=== PATIENT | male | born 1980 | race Caucasian/White ===

== ENCOUNTER 2016-09-14 07:19 | Emergency (ER) | payer OTHER ==
[2016-09-14] MEDS ORDERED: SODIUM CHLORIDE 0.9% 1,000 ML IV STA (08:05)
--- NOTE | 2016-09-14 08:41 | ED ---
Headache HPI - General Chief Complaint: Headache Stated Complaint: Dizziness Time Seen by Provider: 09/14/16 07:42 Mode of arrival: ambulatory Limitations: no limitations - History of Present Illness Initial Comments: 36 years old male. The right-sided earache for 4 days he went to an urgent care and they irrigated his ears. He Has resolved now they noticed his blood pressure was high. This morning he woke up and he was driving to his work and he felt both his arms were quite heavy and left arm felt numb he still has a headache for the last 4 days denies any chest pain or shortness of breath no abdominal pain he was nauseous but no vomiting/medical history is quite unremarkable he is not taking any medications denies any street drugs no alcohol recently he does have a family history of - Related Data Home Medications Medication Instructions Recorded Confirmed Ibuprofen [Motrin] 600 mg PO ONCE PRN 09/14/16 09/14/16 Allergies Allergy/AdvReac Type Severity Reaction Status Date / Time No Known Allergies Allergy Verified 09/14/16 08:28 Review of Systems ROS Statement: Those systems with pertinent positive or pertinent negative responses have been documented in the HPI. ROS Other: All systems not noted in ROS Statement are negative. Past Medical History Past Medical History: No Reported History History of Any Multi-Drug Resistant Organisms: None Reported Past Surgical History: No Surgical Hx Reported Past Psychological History: No Psychological Hx Reported Smoking Status: Never smoker Past Alcohol Use History: Occasional Past Drug Use History: None Reported General Exam - General Exam Comments Initial Comments: General: The patient is awake and alert, in no distress, and does not appear acutely ill. Skin: Skin is warm and dry and no rashes or lesions are noted. Eye: Pupils are equal, round and reactive to light, extra-ocular movements are intact; there is normal conjunctiva bilaterally. Ears, nose, mouth and throat: There are moist mucous membranes and no oral lesions. No sinusitis noticed Neck: The neck is supple, there is no tenderness or JVD. Cardiovascular: There is a regular rate and rhythm. No murmur, rub or gallop is appreciated. Respiratory: To auscultation bilateral, no wheezing no rhonchi no distress respiratory ortega noticed Gastrointestinal: Soft, non-distended, non-tender abdomen without masses or organomegaly noted. There is no rebound or guarding present. Bowel sounds are unremarkable. Back: There is no tenderness to palpation in the midline. There is no obvious deformity. Musculoskeletal: Normal ROM, no tenderness, There is no pedal edema. There is no calf tenderness or swelling. No cords were appreciated. Neurological: CN II-XII intact, Cranial nerves III through XII are intact. There are no obvious motor or sensory deficits. Coordination appears grossly intact. Speech is normal. Psychiatric: Cooperative, appropriate mood & affect, normal judgment. Limitations: no limitations Course Vital Signs 09/14/16 09/14/16 07:28 09:00 Temperature 99.5 F Pulse Rate 85 91 Respiratory 20 18 Rate Blood Pressure 170/96 144/96 O2 Sat by Pulse 100 99 Oximetry EKG is normal sinus rhythm ventricular rate is 80 NC interval is 134 QRS duration duration is 106 QT/QTc is 378/435 review of this EKG does not reveal any ST elevation or restaurants depression Patient's labs were discussed with the patient, CBC, imaging of the chest CT head troponin are negative patient was monitored during his stay in the hospital I didn't have fluctuated from 160 systolic to 145 is advised to see cardiology as outpatient to get a stress test done since she does have a history of hypertension and history of heart disease in his family. He is no stridor noted any blood pressure medication today he was advised to check his blood pressure daily for a few days and then see his family doctor Medical Decision Making - Lab Data Result diagrams: 09/14/16 07:45 09/14/16 07:45 Lab Results 09/14/16 09/14/16 09/14/16 Range/Units 07:45 07:45 07:45 WBC 7.8 (3.8-10.6) k/uL RBC 5.06 (4.30-5.90) m/uL Hgb 15.2 (13.0-17.5) gm/dL Hct 44.8 (39.0-53.0) % MCV 88.7 (80.0-100.0) fL MCH 30.0 (25.0-35.0) pg MCHC 33.9 (31.0-37.0) g/dL RDW 13.0 (11.5-15.5) % Plt Count 220 (150-450) k/uL Neutrophils % 58 % Lymphocytes % 30 % Monocytes % 6 % Eosinophils % 1 % Basophils % 1 % Neutrophils # 4.5 (1.3-7.7) k/uL Lymphocytes # 2.3 (1.0-4.8) k/uL Monocytes # 0.5 (0-1.0) k/uL Eosinophils # 0.1 (0-0.7) k/uL Basophils # 0.0 (0-0.2) k/uL PT 10.4 (9.0-12.0) sec INR 1.0 (<1.1) Sodium 143 (137-145) mmol/L Potassium 3.8 (3.5-5.1) mmol/L Chloride 104 (98-107) mmol/L Carbon Dioxide 25 (22-30) mmol/L Anion Gap 14 mmol/L BUN 16 (9-20) mg/dL Creatinine 0.84 (0.66-1.25) mg/dL Est GFR (MDRD) Af Amer >60 (>60 ml/min/1.73 sqM) Est GFR (MDRD) Non-Af >60 (>60 ml/min/1.73 sqM) Glucose 92 (74-99) mg/dL Calcium 9.4 (8.4-10.2) mg/dL Total Bilirubin 0.7 (0.2-1.3) mg/dL AST 25 (17-59) U/L ALT 21 (21-72) U/L Alkaline Phosphatase 58 (38-126) U/L Troponin I (0.000-0.034) ng/mL Total Protein 8.3 H (6.3-8.2) g/dL Albumin 4.9 (3.5-5.0) g/dL 09/14/16 Range/Units 07:45 WBC (3.8-10.6) k/uL RBC (4.30-5.90) m/uL Hgb (13.0-17.5) gm/dL Hct (39.0-53.0) % MCV (80.0-100.0) fL MCH (25.0-35.0) pg MCHC (31.0-37.0) g/dL RDW (11.5-15.5) % Plt Count (150-450) k/uL Neutrophils % % Lymphocytes % % Monocytes % % Eosinophils % % Basophils % % Neutrophils # (1.3-7.7) k/uL Lymphocytes # (1.0-4.8) k/uL Monocytes # (0-1.0) k/uL Eosinophils # (0-0.7) k/uL Basophils # (0-0.2) k/uL PT (9.0-12.0) sec INR (<1.1) Sodium (137-145) mmol/L Potassium (3.5-5.1) mmol/L Chloride (98-107) mmol/L Carbon Dioxide (22-30) mmol/L Anion Gap mmol/L BUN (9-20) mg/dL Creatinine (0.66-1.25) mg/dL Est GFR (MDRD) Af Amer (>60 ml/min/1.73 sqM) Est GFR (MDRD) Non-Af (>60 ml/min/1.73 sqM) Glucose (74-99) mg/dL Calcium (8.4-10.2) mg/dL Total Bilirubin (0.2-1.3) mg/dL AST (17-59) U/L ALT (21-72) U/L Alkaline Phosphatase (38-126) U/L Troponin I <0.012 (0.000-0.034) ng/mL Total Protein (6.3-8.2) g/dL Albumin (3.5-5.0) g/dL Disposition Clinical Impression: Headache, Left arm numbness, Lightheadedness, Hypertension Disposition: HOME SELF-CARE Instructions: Acute Headache (ED), Hypertension (ED) Additional Instructions: Advised to lose weight as well as decrease the salt intake over down improve the blood pressure numbers Referrals: None,Stated [Primary Care Provider] - 1-2 days Ed Jauregui MD [STAFF PHYSICIAN] - 1-2 days
[2016-09-14 08:46] LABS: Basophils % (A) 1 %; CH 30.7; CHCM 34.7; Eosinophils # (A) 0.1 k/uL (0-0.7); Eosinophils % (A) 1 %; HCT 44.8 % (39.0-53.0); HDW 2.67; HGB 15.2 gm/dL (13.0-17.5); Luc # (Auto) 0.31; Luc % (Auto) 4; Lymphocytes # (A) 2.3 k/uL (1.0-4.8); Lymphocytes % (A) 30 %; MCHC 33.9 g/dL (31.0-37.0); MCV 88.7 fL (80.0-100.0); Mean Platelet Volume 7.1; Monocytes # (A) 0.5 k/uL (0-1.0); Monocytes % (A) 6 %; Neutrophils # (A) 4.5 k/uL (1.3-7.7); Neutrophils % (A) 58 %; RBC 5.06 m/uL (4.30-5.90); WBC 7.8 k/uL (3.8-10.6); WBC (Perox) 7.19
[2016-09-14 08:59] LABS: Prothrombin Time 10.4 sec (9.0-12.0)
--- NOTE | 2016-09-14 09:01 | CT ---
EXAMINATION TYPE: CT brain wo con DATE OF EXAM: 09/14/2016 COMPARISON: NONE HISTORY: Dizziness, elevated BP, TAPIA, near syncope CT DLP: 1174 mGycm Automated exposure control for dose reduction was used. FINDINGS: There is no acute intracranial hemorrhage, mass effect, or midline shift identified. The ventricles and sulci are within normal limits in size. The globes are intact and the visualized sinuses are rboert ar. IMPRESSION: No acute intracranial hemorrhage, mass effect, or midline shift is seen.
--- NOTE | 2016-09-14 09:04 | XR ---
EXAMINATION TYPE: XR chest 2V DATE OF EXAM: 09/14/2016 COMPARISON: NONE INDICATION: Lightheaded hypertension TECHNIQUE: Frontal and lateral views of the chest are obtained. FINDINGS: The heart size is normal. The pulmonary vasculature is normal. The lungs are clear. IMPRESSION: 1. No acute pulmonary process.
[2016-09-14 09:52] LABS: ALT 21 U/L (21-72); AST 25 U/L (17-59); Alkaline Phosphatase 58 U/L (38-126); Anion Gap 14 mmol/L; Blood Urea Nitrogen 16 mg/dL (9-20); Calcium 9.4 mg/dL (8.4-10.2); Carbon Dioxide 25 mmol/L (22-30); Chloride 104 mmol/L (98-107); Glucose 92 mg/dL (74-99); Non-African American GFR(MDRD) >60 (>60 ml/min/1.73 sqM); Potassium 3.8 mmol/L (3.5-5.1); Sodium 143 mmol/L (137-145); Total Bilirubin 0.7 mg/dL (0.2-1.3); Total Protein 8.3 g/dL (6.3-8.2)
[2016-09-14 10:45] VITALS: BP 142/99; PULSE 78; RESP 16; TEMP 98.6
== END 2016-09-14 10:12 | disposition home or self-care (01) ==
LOC: EC 07:19
DX: R51 Headache (principal); R42 Dizziness and giddiness; R20.0 Anesthesia of skin; I10 Essential (primary) hypertension; R11.0 Nausea
CPT/HCPCS: 36415; 70450; 71020; 80053; 84484; 85025; 85610; 93005; 96360; 99284

== ENCOUNTER 2023-04-09 14:53 | Emergency (ER) | payer OTHER ==
[2023-04-09] MEDS ORDERED: SODIUM CHLORIDE 0.9% 1,000 ML IV STA (15:01)
--- NOTE | 2023-04-09 15:02 | ED ---
General Adult HPI <Rigoberto Aguayo - Last Filed: 04/09/23 16:28> <Jazmín Stokes - Last Filed: 04/10/23 03:41> - General Stated complaint: lower abd pain - History of Present Illness Initial comments: quick note: 42 year old male presents for lower abdominal pain. He has had discomfort for the past couple weeks but seems to have gotten worse over the past few days. He also thinks he developed a hernia near his belly button. verbally signed by Rigoberto Aguayo PAC 04/09/22 [id number] (Rigoberto Aguayo) 42-year-old male presenting with chief complaint of abdominal pain. Patient has had lower abdominal pain for the past couple weeks. Located primarily in the center of the lower abdomen and near the umbilicus. He states that he is also noticed small bulge near his umbilicus which she presumes is a hernia, states that he is easily able to reduce this bulge. His pain is gotten worse over the past few days. No surgical history. No nausea, vomiting, diarrhea, hematochezia, melena, dysuria, hematuria, flank pain, chest pain, difficulty amarilys athing, fever, chills. (Jazmín Stokes) - Related Data Home Medications Medication Instructions Recorded Confirmed Ibuprofen [Motrin] 600 mg PO ONCE PRN 09/14/16 09/14/16 Allergies Allergy/AdvReac Type Severity Reaction Status Date / Time No Known Allergies Allergy Verified 04/09/23 15:27 Review of Systems ROS Other: All systems not noted in ROS Statement are negative. <Rigoberto Aguayo - Last Filed: 04/09/23 16:28> ROS Other: All systems not noted in ROS Statement are negative. <Jazmín Stokes - Last Filed: 04/10/23 03:41> ROS Statement: Those systems with pertinent positive or pertinent negative responses have been documented in the HPI. Past Medical History Past Medical History: No Reported History History of Any Multi-Drug Resistant Organisms: None Reported Past Surgical History: No Surgical Hx Reported Past Psychological History: No Psychological Hx Reported Past Alcohol Use History: Occasional Past Drug Use History: None Reported <Rigoberto Aguayo - Last Filed: 04/09/23 16:28> General Exam <Rigoberto Aguayo - Last Filed: 04/09/23 16:28> Limitations: no limitations General appearance: alert, in no apparent distress Head exam: Present: atraumatic, normocephalic Eye exam: Present: normal appearance Neck exam: Present: normal inspection Respiratory exam: Present: normal lung sounds bilaterally. Absent: respiratory distress, wheezes, rales, rhonchi, stridor Cardiovascular Exam: Present: regular rate, normal rhythm, normal heart sounds. Absent: systolic murmur, diastolic murmur, rubs, gallop, clicks GI/Abdominal exam: Present: soft, tenderness (Some mild discomfort in the lower abdomen). Absent: distended, guarding, rebound, rigid Neurological exam: Present: alert, oriented X3 Psychiatric exam: Present: normal affect, normal mood Skin exam: Present: warm, dry <Jazmín Stokes - Last Filed: 04/10/23 03:41> - General Exam Comments Initial Comments: Visual physical exam: Well-appearing, no acute distress, no respiratory distress (Rigoberto Aguayo) Course Vital Signs 04/09/23 04/09/23 04/09/23 15:26 21:00 21:03 Temperature 98.4 F 98.1 F Pulse Rate 88 71 Respiratory 20 18 Rate Blood Pressure 154/95 166/103 167/103 O2 Sat by Pulse 98 96 Oximetry Medical Decision Making - Lab Data Result diagrams: 04/09/23 17:30 04/09/23 20:05 <Jazmín Stokes - Last Filed: 04/10/23 03:41> - Medical Decision Making Was pt. sent in by a medical professional or institution (, PA, ASSURANCE ANALYST, urgent care, hospital, or longterm...) When possible be specific @ -No Did you speak to anyone other than the patient for history (EMS, parent, family, police, friend...)? What history was obtained from this source @ -No Did you review nursing and triage notes (agree or disagree)? Why? @ -I reviewed and agree with nursing and triage notes Were old charts reviewed (outside hosp., previous admission, EMS record, old EKG, old radiological studies, urgent care reports/EKG's, longterm records)? Report findings @ -No old charts were reviewed Differential Diagnosis (chest pain, altered mental status, abdominal pain women, abdominal pain men, vaginal bleeding, weakness, fever, dyspnea, syncope, headache, dizziness, GI bleed, back pain, seizure, CVA, palpatations, mental health, musculoskeletal)? @ -[facility] Differential Abdominal Pain Men: Appendicitis, cholecystitis, diverticulosis, ischemic bowel, pancreatitis, hepatitis, UTI, gastroenteritis, AAA, incarcerated hernia, bowel obstruction, constipation, inflammatory bowel, hepatitis, peptic ulcer disease, splenic infarction, perforated viscus, testicular torsion... This is not meant to be an all-inclusive list EKG interpreted by me (3pts min.). @ -As above X-rays interpreted by me (1pt min.). @ -None done CT interpreted by me (1pt min.). @ -Mild to moderate circumferential bladder wall thickening may be chronic for the patient. Correlate to exclude cystitis. Numerous prominent but not enlarged mid mesenteric lymph nodes measuring up to 8 mm, likely reactive/postinflammatory. Consider a mild mesenteric adenitis. Left L5 pars d efect with some stress reaction at the right L5 pars U/S interpreted by me (1pt. min.). @ -None done What testing was considered but not performed or refused? (CT, X-rays, U/S, labs)? Why? @ -None What meds were considered but not given or refused? Why? @ -None Did you discuss the management of the patient with other professionals (professionals i.e. , PA, ASSURANCE ANALYST, lab, RT, psych nurse, health care social worker, signaling project engineer, teacher, air control/anti air warfare officer, casework manager)? Give summary @ -No Was smoking cessation discussed for >3mins.? @ -No Was critical care preformed (if so, how long)? @ -No Were there social determinants of health that impacted care today? How? (Homeles sness, low income, unemployed, alcoholism, drug addiction, transportation, low edu. Level, literacy, decrease access to med. care, [facility] [facility], rehab)? @ -No Was there de-escalation of care discussed even if they declined (Discuss DNR or withdrawal of care, Hospice)? DNR status @ -No What co-morbidities impacted this encounter? (DM, HTN, Smoking, COPD, CAD, Cancer, CVA, ARF, Chemo, Hep., AIDS, mental health diagnosis, sleep apnea, morbid obesity)? @ -None Was patient admitted / discharged? Hospital course, mention meds given and route, prescriptions, significant lab abnormalities, going to OR and other pertinent info. @ -42-year-old male presenting with chief complaint of abdominal pain ongoing for several weeks. Located mainly in the lower abdomen, centralized. History and physical exam were conducted. WBC 13.9. Initial potassium hemolyzed and falsely elevated at 5.5, repeat is 4.0. Urine shows no infectious process or bleeding. CT suggests mild mesenteric adenitis and shows bladder wall thickening. Patient is educated on today's findings. Instructed to follow-up with PCP and urology. Follow-up with PCP. Report back to ER with any new or worsening symptoms. Discussed return parameters and answered all questions. Patient conveyed verbal understanding and agreed to the plan. I discussed this case in detail with my attending Dr. Douglass Undiagnosed new problem with uncertain prognosis? @ -No Drug Therapy requiring intensive monitoring for toxicity (Heparin, Nitro, Ins ulin, Cardizem)? @ -No Were any procedures done? @ -No Diagnosis/symptom? @ -Mesenteric adenitis Acute, or Chronic, or Acute on Chronic? @ -Acute Uncomplicated (without systemic symptoms) or Complicated (systemic symptoms)? @ -Uncomplicated Side effects of treatment? @ -No Exacerbation, Progression, or Severe Exacerbation? @ -No Poses a threat to life or bodily function? How? (Chest pain, [place], [place], pneumonia, PE, COPD, DKA, ARF, appy, cholecystitis, CVA, Diverticulitis, Homicidal, Suicidal, threat to staff... and all critical care pts) @ -Low likelihood (Jazmín Stokes) - Lab Data Lab Results 04/09/23 04/09/23 04/09/23 Range/Units 17:30 17:30 17:30 WBC 13.9 H (3.8-10.6) k/uL RBC 5.25 (4.30-5.90) m/uL Hgb 16.0 (13.0-17.5) gm/dL Hct 46.5 (39.0-53.0) % MCV 88.5 (80.0-100.0) fL MCH 30.5 (25.0-35.0) pg MCHC 34.4 (31.0-37.0) g/dL RDW 12.8 (11.5-15.5) % Plt Count 250 (150-450) k/uL MPV 7.9 Neutrophils % 71 % Lymphocytes % 21 % Monocytes % 5 % Eosinophils % 1 % Basophils % 0 % Neutrophils # 9.9 H (1.3-7.7) k/uL Lymphocytes # 2.9 (1.0-4.8) k/uL Monocytes # 0.7 (0-1.0) k/uL Eosinophils # 0.1 (0-0.7) k/uL Basophils # 0.1 (0-0.2) k/uL Sodium 140 (137-145) mmol/L Potassium 5.5 H (3.5-5.1) mmol/L Chloride 103 (98-107) mmol/L Carbon Dioxide 21 L (22-30) mmol/L Anion Gap 16 mmol/L BUN 14 (9-20) mg/dL Creatinine 0.63 L (0.66-1.25) mg/dL Est GFR (CKD-EPI)AfAm >90 (>60 ml/min/1.73 sqM) Est GFR (CKD-EPI)NonAf >90 (>60 ml/min/1.73 sqM) Glucose 106 H (74-99) mg/dL Plasma Lactic Acid Filipe (0.7-2.0) mmol/L Calcium 9.5 (8.4-10.2) mg/dL Total Bilirubin 1.3 (0.2-1.3) mg/dL AST 56 (17-59) U/L ALT 34 (4-49) U/L Alkaline Phosphatase 51 (38-126) U/L Total Protein 8.7 H (6.3-8.2) g/dL Albumin 5.3 H (3.5-5.0) g/dL Amylase 78 (30-110) U/L Lipase 106 (23-300) U/L Urine Color Colorless Urine Appearance Clear (Clear) Urine pH 5.5 (5.0-8.0) Ur Specific [place] 1.006 (1.001-1.035) Urine Protein Negative (Negative) Urine Glucose (UA) Negative (Negative) Urine Ketones Negative (Negative) Urine Blood Negative (Negative) Urine Nitrite Negative (Negative) Urine Bilirubin Negative (Negative) Urine Urobilinogen <2.0 (<2.0) mg/dL Ur Leukocyte Esterase Negative (Negative) 04/09/23 04/09/23 Range/Units 17:30 20:05 WBC (3.8-10.6) k/uL RBC (4.30-5.90) m/uL Hgb (13.0-17.5) gm/dL Hct (39.0-53.0) % MCV (80.0-100.0) fL MCH (25.0-35.0) pg MCHC (31.0-37.0) g/dL RDW (11.5-15.5) % Plt Count (150-450) k/uL MPV Neutrophils % % Lymphocytes % % Monocytes % % Eosinophils % % Basophils % % Neutrophils # (1.3-7.7) k/uL Lymphocytes # (1.0-4.8) k/uL Monocytes # (0-1.0) k/uL Eosinophils # (0-0.7) k/uL Basophils # (0-0.2) k/uL Sodium (137-145) mmol/L Potassium 4.0 (3.5-5.1) mmol/L Chloride (98-107) mmol/L Carbon Dioxide (22-30) mmol/L Anion Gap mmol/L BUN (9-20) mg/dL Creatinine (0.66-1.25) mg/dL Est GFR (CKD-EPI)AfAm (>60 ml/min/1.73 sqM) Est GFR (CKD-EPI)NonAf (>60 ml/min/1.73 sqM) Glucose (74-99) mg/dL Plasma Lactic Acid Fili[place] 1.2 (0.7-2.0) mmol/L Calcium (8.4-10.2) mg/dL Total Bilirubin (0.2-1.3) mg/dL AST (17-59) U/L ALT (4-49) U/L Alkaline Phosphatase (38-126) U/L Total Protein (6.3-8.2) g/dL Albumin (3.5-5.0) g/dL Amylase (30-110) U/L Lipase (23-300) U/L Urine Color Urine Appearance (Clear) Urine pH (5.0-8.0) Ur Specific [place] (1.001-1.035) Urine Protein (Negative) Urine Glucose (UA) (Negative) Urine Ketones (Negative) Urine Blood (Negative) Urine Nitrite (Negative) Urine Bilirubin (Negative) Urine Urobilinogen (<2.0) mg/dL Ur Leukocyte Esterase (Negative) Disposition <Rigoberto Aguayo - Last Filed: 04/09/23 16:28> Is patient prescribed a controlled substance at d/c from ED?: No Time of Disposition: 20:41 <Jazmín Stokes - Last Filed: 04/10/23 03:41> Clinical Impression: Mesenteric adenitis Disposition: HOME SELF-CARE Condition: Good Instructions (If sedation given, give patient instructions): Mesenteric Adenitis (ED) Additional Instructions: Follow-up with PCP, suggestions provided, and urology. Report back to ER with any new or worsening symptoms. Referrals: None,Stated [Primary Care Provider] - 1-2 days Keron Chin MD [STAFF PHYSICIAN] - 1-2 days Valdemar Castro MD [STAFF PHYSICIAN] - 1-2 days Tanmay Sharp MD [STAFF PHYSICIAN] - 1-2 days
[2023-04-09] MEDS ORDERED: KETOROLAC 15 MG/ML 1 ML VIAL IVP STA (17:07)
[2023-04-09 18:10] LABS: Appearance,Urine Clear (Clear); Bilirubin,Urine Negative (Negative); Blood,Urine Negative (Negative); Color,Urine Colorless; Glucose,Urine (UA) Negative (Negative); Ketones,Urine Negative (Negative); Leukocyte Esterase,Urine Negative (Negative); Nitrite,Urine Negative (Negative); PH, Urine 5.5 (5.0-8.0); Protein,Urine Negative (Negative); Specific Gravity,Urine 1.006 (1.001-1.035); Urobilinogen,Urine <2.0 mg/dL (<2.0)
[2023-04-09 18:27] LABS: Basophils # (A) 0.1 k/uL (0-0.2); Basophils % (A) 0 %; Eosinophils # (A) 0.1 k/uL (0-0.7); Eosinophils % (A) 1 %; HCT 46.5 % (39.0-53.0); Lymphocytes # (A) 2.9 k/uL (1.0-4.8); Lymphocytes % (A) 21 %; MCH 30.5 pg (25.0-35.0); MCHC 34.4 g/dL (31.0-37.0); MCV 88.5 fL (80.0-100.0); Mean Platelet Volume 7.9; Monocytes # (A) 0.7 k/uL (0-1.0); Monocytes % (A) 5 %; Neutrophils # (A) 9.9 k/uL (1.3-7.7); Neutrophils % (A) 71 %; Platelet Count 250 k/uL (150-450); RBC 5.25 m/uL (4.30-5.90); RDW 12.8 % (11.5-15.5); WBC 13.9 k/uL (3.8-10.6)
[2023-04-09 18:42] LABS: ALT 34 U/L (4-49); AST 56 U/L (17-59); African American GFR (CKD) >90 (>60 ml/min/1.73 sqM); Albumin 5.3 g/dL (3.5-5.0); Alkaline Phosphatase 51 U/L (38-126); Amylase 78 U/L (30-110); Anion Gap 16 mmol/L; Blood Urea Nitrogen 14 mg/dL (9-20); Calcium 9.5 mg/dL (8.4-10.2); Carbon Dioxide 21 mmol/L (22-30); Chloride 103 mmol/L (98-107); Glucose 106 mg/dL (74-99); Lipase 106 U/L (23-300); Non-African American GFR(CKD) >90 (>60 ml/min/1.73 sqM); Sodium 140 mmol/L (137-145); Total Bilirubin 1.3 mg/dL (0.2-1.3); Total Protein 8.7 g/dL (6.3-8.2)
[2023-04-09 18:58] LABS: Potassium 5.5 mmol/L (3.5-5.1)
--- NOTE | 2023-04-09 19:01 | CT ---
EXAMINATION TYPE: CT abdomen pelvis w con DATE OF EXAM: 04/09/2023 COMPARISON: NONE HISTORY: 42-year-old male mid-lower abd pain x a couple weeks. Pt states it was the most severe today . TECHNIQUE: Contiguous axial scanning of the abdomen and pelvis following administration of 100 ml Omn ipaque 300 IV contrast. Delayed images through the kidneys and coronal/sagittal reconstructions perf ormed. CT DLP: 928.6 mGycm Automated exposure control for dose reduction was used. FINDINGS: LUNG BASES: No significant abnormality. LIVER/GB: No significant abnormality is appreciated. PANCREAS: No significant abnormality is seen. SPLEEN: No significant abnormality is seen. ADRENALS: No significant abnormality is seen. KIDNEYS: No significant abnormality is seen. BOWEL: No dilated small bowel, free fluid, or free air. Small, normal appendix noted. Scattered mild stool. No pericolonic inflammatory change. LYMPH NODES: Numerous scattered prominent but nonenlarged mesenteric lymph nodes measuring up to 8 mm . PELVIS: Moderate circumferential bladder wall thickening. Central prostatic calcifications. Prostate gland mildly enlarged at 4.3 cm wide. No abnormal fluid collection in the pelvis or pelvic lymphadeno wilver. OSSEOUS STRUCTURES: Left L5 pars defect. Some sclerosis of the right pars interarticularis region. Mi ld facet arthropathy lower lumbar spine. OTHER: No significant additional abnormality is seen. IMPRESSION: 1. MILD TO MODERATE CIRCUMFERENTIAL BLADDER WALL THICKENING MAY BE CHRONIC FOR THE PATIENT. CORRELATE TO EXCLUDE CYSTITIS. 2. NUMEROUS PROMINENT BUT NONENLARGED MID MESENTERIC LYMPH NODES MEASURING UP TO 8 MM, LIKELY REACTIV E/POST INFLAMMATORY. CONSIDER A MILD MESENTERIC ADENITIS. 3. LEFT L5 PARS DEFECT WITH SOME STRESS REACTION AT THE RIGHT L5 PARS.
[2023-04-09 21:12] VITALS: BP 167/103; PULSE 71; RESP 18; TEMP 98.1
== END 2023-04-09 21:07 | disposition home or self-care (01) ==
LOC: EC 14:53
DX: I88.0 Nonspecific mesenteric lymphadenitis (principal); F43.9 Reaction to severe stress, unspecified
CPT/HCPCS: 36415; 80053; 82150; 83605; 83690; 84132; 85025; 81003; 74177; 99284; 96374; 96361 ×3; J1885; Q9967